=== PATIENT | female | born 1985 | race Caucasian/White ===

== ENCOUNTER 2022-02-15 16:29 | Emergency (ER) | payer OTHER ==
[~2022-02-15] VITALS: Ht 154.9 cm; Wt 68.0 kg
[2022-02-15 16:37] VITALS: BP_SYST 142
--- NOTE | 2022-02-15 16:41 | NUR ---
Patient to ER bed CH1 to gown for evaluation. Side rails up.
--- NOTE | 2022-02-15 16:55 | NUR ---
ER DR. GONZALES EXAMINING PT
[2022-02-15] MEDS ORDERED: ONDANSETRON 4 MG ODT TAB PO ONE (17:00)
[2022-02-15 17:34] VITALS: BP_SYST 142
--- NOTE | 2022-02-15 17:34 | NUR ---
Patient given written and verbal discharge instructions and verbalizes understanding. ER MD discussed with patient the results and treatment provided. Patient in stable condition. ID arm band removed. NO Rx given. Patient educated on pain management and to follow up with PMD. Pain Scale 0/10. Opportunity for questions provided and answered. Medication side effect fact sheet provided.
[2022-02-15] MEDS ORDERED: ACETAMINOPHEN 325 MG TABLET ONE (17:42)
== END 2022-02-15 17:34 ==
LOC: SED 16:29
DX: Z02.89 Encounter for other administrative examinations (principal); F17.200 Nicotine dependence, unspecified, uncomplicated; F19.10 Other psychoactive substance abuse, uncomplicated; Z79.899 Other long term (current) drug therapy
CPT/HCPCS: 99283; Q0162